=== PATIENT | male | born 1985 | race Caucasian/White ===

== ENCOUNTER 2019-11-17 00:06 | Observation (INO) | payer OTHER, SELFPAY ==
[2019-11-17] VITALS (13 sets, daily range): BP systolic 112–135; BP diastolic 51–85; PULSE 70–86; RESP 14–21; TEMP 36.7–37.1; O2SAT 96–100; BMI 38.7
--- NOTE | ~2019-11-17 | CT_ITS ---
EXAMINATION: CT abdomen pelvis w con DATE: 11/17/2019 01:20 INDICATION: Right lower quadrant abdominal pain. TECHNIQUE: Computed tomography (CT) of the abdomen and pelvis was performed . with 100 mL Omnipaque-3 50 intravenous contrast. Automated exposure control and iterative reconstruction technique were emplo yed. The dose-length product was 1433.98 mGy-cm. COMPARISON: None FINDINGS: Minimal dependent atelectasis in the bilateral lower lobes. Heart size is normal. No pericardial or p leural effusion. Diffuse hepatic steatosis with focal sparing along the gallbladder fossa. Gallbladde r, spleen, pancreas, bilateral adrenal glands and left kidney are normal. 8 mm relatively low-attenua tion lesion at the upper pole of the left kidney with slightly greater than simple fluid attenuation. The fluid-filled appendix is dilated to 10 mm distal to a calcified appendicolith at the base of the appendix. There is mucosal hyperemia and mild surrounding inflammatory stranding consistent with acu te appendicitis. Remainder of the bowels are normal with no obstruction. Trace amount of likely react miko free fluid in the pelvis. No abscess or free intraperitoneal gas. Bladder is normal. No pathologi elpidio enlarged abdominal or pelvic lymphadenopathy. Bones are unremarkable. IMPRESSION: 1. Radiographically uncomplicated acute appendicitis. According to documentation in report provided b [facility], Dr. Manjit Grullon discussed these findings with emergency room Dr. Cervantes at 1:51 AM . 2. Indeterminate 8 mm relatively low-attenuation lesion at the upper pole of the right kidney statist ically most likely to represent a proteinaceous/hemorrhagic cyst although solid neoplasm cannot be ab solutely excluded. Recommend follow-up pre and postcontrast CT or MRI 6-12 months. Reviewed, dictated and finalized at location A. IMPRESSION: 1. Radiographically uncomplicated acute appendicitis. According to documentatio n in report provided by [facility], Dr. Manjit Grullon discussed these finding s with emergency room Dr. Cervantes at 1:51 AM. 2. Indeterminate 8 mm relatively low-attenuation lesion at the upper pole of th e right kidney statistically most likely to represent a proteinaceous/hemorrhag ic cyst although solid neoplasm cannot be absolutely excluded. Recommend follow -up pre and postcontrast CT or MRI 6-12 months.
--- NOTE | 2019-11-17 00:17 | ED.ABDPAIN ---
HPI - Abdominal Pain General Chief Complaint: Abdominal Pain Stated Complaint: abd pain Time Seen by Provider: 11/17/19 00:15 Source: patient Mode of arrival: ambulatory Limitations: no limitations History of Present Illness HPI narrative: Patient is a 34-year-old male who presents to the emergency department for evaluation of abdominal pain. Patient reports lower abdominal pain, mostly in the right and left lower quadrant. No distention. Patient reports nausea, one episode of emesis at home which did not improve the patient's symptoms. No loose stools or diarrhea. Patient states he ate a hamburger at lunch, some macaroni for dinner, these are relatively normal meals for him. No one at home with similar symptoms. No history of abdominal surgeries. No chest pain, fever or chills. Related Data Home Medications Medication Instructions Recorded Confirmed No Home Medications 11/17/19 11/17/19 Allergies Allergy/AdvReac Type Severity Reaction Status Date / Time No Known Allergies Allergy Verified 11/17/19 00:30 Review of Systems Review of Systems: Narrative: CONSTITUTIONAL: Denies fever CARDIOVASCULAR: Denies chest pain RESPIRATORY: Denies cough or dyspnea. GASTROINTESTINAL: Reports abdominal pain, nausea and vomiting, denies diarrhea SKIN: Denies rash MUSCULOSKELETAL: Denies back pain NEUROLOGIC: Denies headache PMFSH Past Medical History Medical History (Updated 11/17/19 @ 01:50 by Jody Cervantes MD) No pertinent past medical history Surgical History Surgical History (Updated 11/17/19 @ 00:30 by Jody Cervantes MD) No pertinent past surgical history Social History Social History (Updated 11/17/19 @ 00:31 by Jody Cervantes MD) Smoking status: Never smoker Alcohol intake: never Substance use: never Living arrangements: with family Gender identity (if verbalized by the patient): Male Exam Narrative: Exam Narrative: GENERAL: Awake, alert, conversant HEAD: Normocephalic, atraumatic. EYES: PERRLA and EOMI. ENT: Nares clear, no rhinorrhea or epistaxis. Mucous membranes moist. NECK: Supple. CHEST: No respiratory distress, breathing even and non labored HEART: Regular rate, sinus rhythm ABDOMEN: Mild distention, tender in the right and left lower quadrant, greater tenderness in the right lower quadrant, no rebound or guarding, nonrigid EXTREMITIES: Normal range of motion. No edema. SKIN: Warm, dry, no rash. NEURO:No focal deficits. Alert and oriented x3 Course Vital Signs Vital signs: Vital Signs Temperature 37.1 C 11/17/19 00:15 Pulse Rate 86 11/17/19 00:15 Respiratory Rate 19 11/17/19 00:15 Blood Pressure 135/85 11/17/19 00:15 Pulse Oximetry 100 11/17/19 00:15 Temperature 37.1 C 11/17/19 00:15 Pulse Rate 86 11/17/19 00:15 Respiratory Rate 19 11/17/19 00:15 Blood Pressure 135/85 11/17/19 00:15 Pulse Oximetry 100 11/17/19 00:15 MDM - Abdominal Pain MDM Narrative Medical decision making narrative: Patient presented to the emergency department for evaluation of abdominal pain. At the time of assessment, patient has the greatest pain in his right lower quadrant, clinically this was somewhat concerning for appendicitis. Laboratory results notable for leukocytosis. CT scan confirms dilated appendix, no perforation, surrounding inflammatory changes. Patient was given dose of Zosyn, admitted to general surgery on n.p.o. status with IV maintenance fluids. Differential Diagnosis Differential diagnosis: Likely abdominal pain, acute appendicitis, calculus of kidney, constipation, diverticulitis, gastroenteritis, pancreatitis and small bowel obstruction Lab Data Attestation: I reviewed the patient's lab results. Result diagrams: 11/17/19 00:45 11/17/19 01:09 Labs: Lab Results 11/17/19 11/17/19 11/17/19 Range/Units 00:45 00:45 01:09 WBC 14.7 H (4.5-10.0) K/mm3 RBC 5.19 (4.6-6.20) M/mm3 Hgb 15.2
[2019-11-17] MEDS: ONDANSETRON INJ 4 MG/2 ML VIAL IV PUSH (00:39)
[2019-11-17] MEDS: MORPHINE SULFATE 4 MG/ML INJ IV PUSH ×2 (00:40→07:51)
[2019-11-17] MEDS: SODIUM CHLORIDE 0.9% IV 1,000 ML 999 ML IV CONT (00:45)
[2019-11-17 00:56] LABS: Basophils Absolute Auto 0.1 K/mm3 (0.0-0.1); Basophils Percent Auto 0.4 % (0.2-1.2); Eosinophils Absolute Auto 0.1 K/mm3 (0-0.3); Eosinophils Percent Auto 0.7 % (0-4.4); Hematocrit 45.2 % (42.0-52.0); Hemoglobin 15.2 g/dL (14.0-18.0); Immature Granulocyte Absolute 0.04 K/mm3 (0.00-0.031); Immature Granulocyte Percent A 0.3 % (0-0.5); Lymphocytes Absolute Auto 1.96 K/mm3 (0.9-3.2); Lymphocytes Percent Auto 13.3 % (18.3-44.2); Mean Corpuscular HGB Conc 33.6 g/dl (32-36); Mean Corpuscular Hemoglobin 29.3 pg (26-34); Mean Corpuscular Volume 87.1 fl (80-100); Mean Platelet Volume 9.9 fl (7.4-10.4); Monocytes Absolute Auto 1.1 K/mm3 (0.1-0.6); Monocytes Percent Auto 7.5 % (2.6-8.5); Neutrophils Absolute Auto 11.5 K/mm3 (1.3-6.7); Neutrophils Percent Auto 77.8 % (45.5-73.1); Platelet Count Result 274 k/mm3 (150-375); Red Blood Count 5.19 M/mm3 (4.6-6.20); Red Cell Distribution Width 12.8 % (11.5-14.5); White Blood Count 14.7 K/mm3 (4.5-10.0)
[2019-11-17 01:05] LABS: Alanine Aminotransferase 80 U/L (4-50); Albumin Level 4.6 g/dL (3.5-5.1); Alkaline Phosphatase 86 U/L (38-126); Aspartate Amino Transferase 49 U/L (17-59); Bilirubin,Total 0.4 mg/dL (0.2-1.3); Blood Urea Nitrogen 13 mg/dL (9-20); Calcium 9.7 mg/dL (8.4-10.2); Carbon Dioxide 26 mmol/L (22-30); Chloride 105 mmol/L (98-107); Estimated CRCL calculation 127 ml/min; Estimated Glomerular Filt Rate > 60; Glucose 112 mg/dL (75-110); Lipase 70 U/L (23-300); Potassium 4.5 mmol/L (3.4-5.0); Sodium 137 mmol/L (137-145)
[2019-11-17 01:09] LABS: Estimated CRCL calculation 105 ml/min; Estimated Glomerular Filt Rate > 60
[2019-11-17 02:05] LABS: Add Urine Microscopic? NO; Appearance Urine Clear (Clear); Bilirubin Urine Negative (Negative); Blood Urine Negative (Negative); Color Urine Yellow (Yellow); Glucose Urine UA Negative (Negative); Ketones Urine Negative (Negative); Leukocyte Esterase Ur Negative LEU/UL (Negative); Mucus Urine Rare /lpf; Nitrate Urine Negative (Negative); Protein Urine Negative (Negative); RBC Urine 0-2 /hpf (0-2); Urobilinogen Urine Negative mg/dL (<2.0); WBC Urine 0-3 /hpf
[2019-11-17 02:10] LABS: Specific Grav Ur 1.054 (1.001-1.035)
--- NOTE | 2019-11-17 03:09 | ADMGEN ---
This patient, Hermilo Teresa, was admitted to Medical Room 252-01. Patient/family oriented to hospital policies and general routines including ID bracelet, bed and alarms, visiting hours, pain management, procedures, bathroom and other care routines, personal items, smoking policy, room service/diet, and visiting hours. Valuables list has been completed. Information on how to activate the Rapid Response Team has been discussed. Patient/Family are encouraged to report perceived risks to care and to ask questions if they do not understand what they are told or what they should do.
[2019-11-17] MEDS: SODIUM CHLORIDE 0.9% IV 1,000 ML 125 ML IV CONT (03:29)
--- NOTE | 2019-11-17 08:15 | WPDANESEPPF ---
Anes - Initial Pre Proc Eval Procedure: Operation Date: 11/17/19 10:30 Proposed Procedures p Laparoscopic Appendectomy - Nain Quesada MD Date/Time: 11/17/19 08:15 Surgeon: Nain Quesada MD Pre Op Diagnosis: Acute appendicitis Patient Data Age: 34 Gender: M Height: 5 ft 8 in Weight: 115.5 kg Last Vital Signs Temp 98.1 F 11/17/19 06:00 Pulse 81 11/17/19 06:00 Resp 21 H 11/17/19 06:00 BP 112/51 L 11/17/19 06:00 Pulse Ox 100 11/17/19 06:00 Allergies Allergy/AdvReac Type Severity Reaction Status Date / Time No Known Allergies Allergy Verified 11/17/19 00:30 Home Medications Medication Instructions Recorded Confirmed Type No Home Medications 11/17/19 11/17/19 History Laboratory Tests 11/17/19 11/17/19 11/17/19 00:45 00:45 01:09 WBC 14.7 K/mm3 H K/mm3 (4.5-10.0) RBC 5.19 M/mm3 M/mm3 (4.6-6.20) Hgb 15.2 g/dL g/dL (14.0-18.0) Hct 45.2 % % (42.0-52.0) MCV 87.1 fl fl (80-100) MCH 29.3 pg pg (26-34) MCHC 33.6 g/dl g/dl (32-36) RDW 12.8 % % (11.5-14.5) Plt Count 274 k/mm3 k/mm3 (150-375) MPV 9.9 fl fl (7.4-10.4) Immature Gran % (Auto) 0.3 % % (0-0.5) Neut % (Auto) 77.8 % H % (45.5-73.1) Lymph % (Auto) 13.3 % L % (18.3-44.2) Kerr % (Auto) 7.5 % % (2.6-8.5) Eos % (Auto) 0.7 % % (0-4.4) Baso % (Auto) 0.4 % % (0.2-1.2) Lymph # (Auto) 1.96 K/mm3 K/mm3 (0.9-3.2) Kerr # (Auto) 1.1 K/mm3 H K/mm3 (0.1-0.6) Eos # (Auto) 0.1 K/mm3 K/mm3 (0-0.3) Baso # (Auto) 0.1 K/mm3 K/mm3 (0.0-0.1) Abs Immat Gran (auto) 0.04 K/mm3 H K/mm3 (0.00-0.031) Absolute Neuts (auto) 11.5 K/mm3 H K/mm3 (1.3-6.7) Absolute Nucleated RBC 0.0 K/mm3 K/mm3 (0.0-0.012) Nucleated RBC % 0.0 % % (0.0-0.2) Sodium 137 mmol/L mmol/L (137-145) Potassium 4.5 mmol/L mmol/L (3.4-5.0) Chloride 105 mmol/L mmol/L (98-107) Carbon Dioxide 26 mmol/L mmol/L (22-30) BUN 13 mg/dL mg/dL (9-20) Creatinine 0.90 mg/dL mg/dL 1.10 mg/dL mg/dL (0.7-1.3) (0.8-1.5) Estim Creat Clear Calc 127 ml/min ml/min 105 ml/min ml/min Estimated GFR > 60 > 60 (59 - ) (59 - ) Glucose 112 mg/dL H mg/dL (75-110) Calcium 9.7 mg/dL mg/dL (8.4-10.2) Total Bilirubin 0.4 mg/dL mg/dL (0.2-1.3) AST 49 U/L U/L (17-59) ALT 80 U/L H U/L (4-50) Alkaline Phosphatase 86 U/L U/L (38-126) Total Protein 8.0 g/dL g/dL (6.3-8.2) Albumin 4.6 g/dL g/dL (3.5-5.1) Lipase 70 U/L U/L (23-300) Urine Color Urine Appearance Urine pH Ur Specific [place] Urine Protein Urine Glucose (UA) Urine Ketones Ur Blood (Man) Urine Nitrate Urine Bilirubin Urine Urobilinogen Leukocyte Esterase Rfl Urine RBC Urine WBC Urine Mucus 11/17/19 01:42 WBC RBC Hgb Hct MCV MCH MCHC RDW Plt Count MPV Immature Gran % (Auto) Neut % (Auto) Lymph % (Auto) Kerr % (Auto) Eos % (Auto) Baso % (Auto) Lymph # (Auto) Kerr # (Auto) Eos # (Auto) Baso # (Auto) Abs Immat Gran (auto) Absolute Neuts (auto) Absolute Nucleated RBC Nucleated RBC % Sodium Potassium Chloride Carbon Dioxide BUN Creatinine Estim Creat Clear Calc Estimated GFR Glucose Calcium Total Bilirubin AST ALT Alkaline Phosphatase Total Protein A
--- NOTE | 2019-11-17 08:55 | PM.IMHP ---
H&P: HPI History of Present Illness Chief complaint: Acute appendicitis Narrative: Hermilo Teresa is a 34 year old male who presented to the emergency department with complaints of right lower quadrant abdominal pain. He reports having a sudden onset of generalized mild cramping abdominal pain around 4:30 p.m. last night. He decided to eat dinner and the cramping slowly became worse and started to localize to the right lower quadrant. He thought initially that this could gas pains, so he took Gas-X. This did not relieve his pain. He also reports feeling bloated and then vomited around 10:00 p.m.. He reportedly felt better for about 30 minutes, but the abdominal pain then returned. The pain continued to worsen and was unrelenting, therefore he presented to the emergency department for further evaluation. CT scan of the abdomen and pelvis showed acute uncomplicated appendicitis. Labs revealed leukocytosis with a white blood cell count 14,700. Our service was contacted for the acute appendicitis and the patient was admitted to our service with IV antibiotics, IV fluids, and made NPO. The patient is now being seen on medical floor. He reports he is still having right lower quadrant and right upper quadrant abdominal pain. Denies any nausea or vomiting since admission. He has been afebrile with vital signs stable. No other complaints at this time. Review of Systems Constitutional: Constitutional: Reports as per HPI, Denies chills, Denies excessive sweating, Denies fatigue, Denies fever(s), Denies headache(s) and Denies weakness Eyes: Eyes: Denies change in vision and Denies loss of vision ENT: Reports Normal hearing present, Denies dizziness and Denies headache(s) Cardiovascular: Cardiovascular: Denies chest pain, Denies syncope, Denies leg edema, Denies lightheadedness, Denies radiating jaw, neck or arm pain and Denies dyspnea Respiratory: Respiratory: Denies cough, Denies dyspnea and Denies wheezing Gastrointestinal: Gastrointestinal: Reports as per HPI, Reports abdominal pain (RLQ, RUQ), Reports bloating, Denies change in bowel habits, Denies coffee ground emesis, Denies constipation, Denies GI cramping, Denies diarrhea, Denies loose stools, Denies nausea, Denies odynophagia, Reports vomiting and Denies hematemesis Genitourinary: Genitourinary: Reports no additional male genitourinary complaints, Denies hematuria and Denies dysuria Musculoskeletal: Musculoskeletal: Denies deformity, Denies joint swelling, Denies radiating pain into limb and Denies tingling Integumentary/Breasts: Skin/Breast: Denies pruritus, Denies wounds and Denies jaundice Neurologic: Reports Normal hearing present, Denies confusion, Denies dizziness, Denies syncope, Denies headache(s), Denies loss of vision, Denies tingling, Denies tremor(s) and Denies weakness Psychiatric: Psychiatric: Denies anxiety, Denies confusion and Denies depression Endocrine: Endocrine: Denies cold intolerance, Denies excessive sweating, Denies fatigue and Denies heat intolerance Hematologic/Lymphatic: Hematologic/Lymphatic: Denies easy bleeding and Denies easy bruising PMFSH Past Medical History Medical History Obesity Surgical History Surgical History History of hernia repair Hernia repair as an infant, which sounds like an inguinal hernia repair. Family History Family History Grandparent Heart disease Kidney failure Other Carcinoma of colon Social History Social History Social History: The patient designates his , Mary Teresa (she goes by Janie ), as his decision maker. He wishes to be a full code. Smoking status: Never smoker Alcohol intake: current Drinks per week: 1 Substance use: never Living arrangements: with family Additional katarina
--- NOTE | 2019-11-17 09:03 | PC.NURSE ---
To OR per bed, IV saline locked
[2019-11-17] MEDS: LACTATED RINGERS 1,000 ML 30 ML IV CONT ×2 (09:26→12:10)
[2019-11-17] MEDS: BUPIVACAINE/EPINEPHRINE 0.5% 30 ML VIAL INFILTRATE (11:13)
[2019-11-17] MEDS: KETOROLAC 30 MG/ML VIAL (*BKC) IV PUSH (11:57)
--- NOTE | 2019-11-17 12:29 | PM.PROC ---
Procedure Note - Detailed Date of procedure: 11/17/19 Pre-op diagnosis: Acute appendicitis Post-op diagnosis: other (Acute appendicitis without peritonitis) Procedure performed: Laparoscopic Appendectomy Description of procedure: The patient was seen in his hospital room. The risks, benefits, complications, treatment options, and expected outcomes were discussed with the patient and/or family. The possibilities of reaction to medication, pulmonary aspiration, perforation of viscus, bleeding, recurrent infection, finding a normal appendix, the need for additional procedures, failure to diagnose a condition, and creating a complication requiring transfusion or operation were discussed. There was concurrence with the proposed plan and informed consent was obtained. The site of surgery was properly noted/marked. The patient was taken to Operating Room, and a time out was preformed which identified this as the proper patient, and the procedure verified as laparoscopic appendectomy, possible open. The patient was placed in the supine position and general anesthesia was induced, along with placement of orogastric tube, SCD hose, and a Hernandez catheter. The abdomen was prepped and draped in a sterile fashion. A 5 mm umbilical incision was made and the peritoneal cavity was accessed using the Veress needle technique. Once the abdomen was insufflated to 14 mmHg pressure a 5 mm XL trocar over the 0? 5 mm scope was carefully twisted into the abdomen via the umbilicus. The pneumoperitoneum was then established to steady pressure of 14 mm Hg. A 12 mm laparoscopic port was placed through a transverse suprapubic incision. An additional 5 mm cannula was then placed in the left lower quadrant of the abdomen at a level half way between the umbilicus and pubic symphysis under direct vision. A careful evaluation of the entire abdomen was carried out. The patient was placed in Trendelenburg and left lateral decubitus position. The small intestines were retracted in the cephalad and left lateral direction away from the pelvis and right lower quadrant. The patient was found to have an enlarged and inflamed appendix that was extending [into the right side of the pelvis. There was no evidence of perforation. The appendix was carefully dissected. Once it was free a 45 mm ethicon endogastroentestinal stapler with a vascular load was placed across the mesoappendix. This was fired and hemostasis was checked along the staple line and appeared to be adequate. For this patient, this divided the entire mesoappendix and we were able to proceed immediately to stapling off the appendix at it's junction with the cecum. The appendix was then divided at its base using the same 45 mm stapler with a 3.5 mm bowel wall load. Minimal appendiceal stump was left in place. There was no evidence of bleeding, leakage, or complication after division of the appendix at its junction with the cecum.. The appendix was then placed in an endobag which had been brought through the 12 mm suprapubic port site. The appendix and the bag were then extracted through this larger port site in the suprapubic position. The suprapubic port site was closed using a #1 Polysorb suture passed with a Giorgio-Fairchild cone and needle suture passer. Also the suprapubic incision was accessible enough that I also was able to use a standard needle castro externally through the an incision at the level of the fascia. The trocar site skin wounds were closed using 4-0 undyed Monocryl and surgical glue. Instrument, sponge, and needle counts were correct at the conclusion of the case. Anesthesia: GETA Surgeon: Nain Quesada MD Bacteriology Teacher: ANGUS Dumont, OR 1st assist Estimated blood loss (mL): 25 Drains: No Pathology: yes (The appendix.) Complications: No immediate complications Condition: stable Disposition: PACU Findings: The swollen red appendix with some reactive fluid around it but no signs of perforation.
--- NOTE | 2019-11-17 13:08 | PC.NURSE ---
Returned from OR per bed with IV saline locked. Incisions assessed upon arrival, open to air, skin glue intact and well approximated.
--- NOTE | 2019-11-17 17:24 | PM.DS ---
DS: Admitting Diagnosis Admitting Diagnosis Admitting Diagnosis: Acute appendicitis with localized peritonitis, without perforation or gangrene DS: Discharge Diagnosis Discharge Diagnosis (1) Acute appendicitis: Qualifiers: Acute appendicitis type: with localized peritonitis Appendicitis abscess presence: without abscess Appendicitis gangrene presence: without gangrene Appendicitis perforation presence: without perforation Qualified Code(s): K35.30 - Acute appendicitis with localized peritonitis, without perforation or gangrene Code(s): K35.80 - Unspecified acute appendicitis Status: Acute (2) Obesity: Code(s): E66.9 - Obesity, unspecified Status: Acute Assessment and Plan: Encouraged patient to lose weight down to his ideal body weight. DS: Summary Hospital Course Reason for hospitalization: Acute appendicitis Hospital Course: patient uneventful hospital course. He was made in the middle the night. Her able to schedule his surgery in the morning he had acute appendicitis but without perforation. He received antibiotics up until and through the time of surgery. He does not need them now. Postoperatively was doing well in the help in his hospital room advancing his diet slowly tolerating liquids without nausea. It was felt that he was independent to go home. We will send some pain pills home with them but he was not taking any [place] here. Status at Discharge Cognitive/behavioral status at discharge: Back to baseline. Functional status at discharge: independent ambulation Time Spent with Patient Time attestation: Total time spent providing and/or coordinating discharge services: Time spent: Less than 30 minutes Exam Const: General: cooperative, no acute distress, alert and awake Orientation/consciousness: patient oriented x3 HENMT: Mouth: Yes moist mucous membranes Neck: Neck: normal visual inspection Chest: Chest palpation & inspection: normal inspection of the chest Resp: Effort & Inspection: normal respiratory effort Auscultation: clear to auscultation bilaterally Cardio: Jugular venous distension: no JVD Rate: regular rate Rhythm: regular rhythm GI: Rectal Exam: deferred Other: incisions at umbilicus and left lower quadrant clean and dry with surgical glue in place. Abdomen soft rounded without signs of ileus. Neuro: General: patient oriented x3 and moves all extremities Speech: normal speech Extrem: General: normal exam except as noted Psych: Mental Status: mental status grossly normal Speech and movement: Normal speech and movement present Affect: normal affect Thought content: Yes Normal thought content present DS: Data Data Completed and Pending Pending studies at discharge: Pending at discharge 11/17/19 11:21 Surgical [PTH] Routine Labs on day of discharge: Labs from last 24 hours 11/17/19 11/17/19 11/17/19 01:42 01:09 00:45 WBC RBC Hgb Hct MCV MCH MCHC RDW Plt Count MPV Immature Gran % (Auto) Neut % (Auto) Lymph % (Auto) [place] % (Auto) Eos % (Auto) Baso % (Auto) Lymph # (Auto) [place] # (Auto) Eos # (Auto) Baso # (Auto) Abs Immat Gran (auto) Absolute Neuts (auto) Absolute Nucleated RBC Nucleated RBC % Sodium 137 Potassium 4.5 Chloride 105 Carbon Dioxide 26 BUN 13 Creatinine 1.10 0.90 Estim Creat Clear Calc 105 127 Estimated GFR > 60 > 60 Glucose 112 H Calcium 9.7 Total Bilirubin 0.4 AST 49 ALT 80 H Alkaline Phosphatase 86 Total Protein 8.0 Albumin 4.6 Lipase 70 Urine Color Yellow Urine Appearance Clear Urine pH 5.0 Ur Specific [place] 1.054 H Urine Protein Negative Urine Glucose (UA) Negative Urine Ketones Negative Ur Blood (Man) Negative Urine Nitrate Negative Urine Bilirubin Negative Urine Urobilinogen Negative Leukocyte Esterase Rfl Negative
--- NOTE | 2019-11-18 09:55 | WPDANESPN ---
Anes - Prog Note Post-Op Date/Time: 11/18/19 09:55 Cardiovascular status: normal Respiratory status: normal Airway patency: baseline Mental status: baseline Post-Op hydration status: normal Vital Signs: Last Vital Signs Temp 98.1 F 11/17/19 15:00 Pulse 70 11/17/19 15:00 Resp 18 11/17/19 15:00 BP 115/71 11/17/19 15:00 Pulse Ox 98 11/17/19 15:00 I/O: Intake & Output 11/17/19 11/18/19 11/18/19 23:59 07:59 15:59 Intake Total 470 Output Total 50 Balance 420 Laboratory Tests 11/17/19 00:45 11/17/19 01:09 Post-procedural complaints: none Patient Feedback: Patient satisfied with anesthetic care.
== END 2019-11-17 17:49 | disposition home or self-care (01) ==
LOC: ANHED 01:57 → ANH2MED 03:47
PROVIDERS: Admitting Provider Surgery; Emergency Provider Emergency Medicine; Visit Provider Surgery
PROC: 0DTJ4ZZ Resection of Appendix, Percutaneous Endoscopic Approach (ICD-10-PCS; CPT 44970; principal; 2019-11-17 10:30)
DX: K35.32 Acute appendicitis with perforation, localized peritonitis, and gangrene, without abscess (principal); K38.1 Appendicular concretions; E66.9 Obesity, unspecified; Z68.38 Body mass index [BMI] 38.0-38.9, adult
CPT/HCPCS: 44970; 36415; 74177; 80053; 81003; 83690; 85025; 88304; 96361; 96365; 96367; 96375; 96376; 99285; G0378; J0131; J0330; J1100; J1170; J1885; J2250; J2270; J2405; J2543; J2704; J2710; J3010; J7030; J7120; Q9967

== ENCOUNTER 2023-03-29 16:38 | Emergency (ER) | payer OTHER, SELFPAY ==
--- NOTE | ~2023-03-29 | XR_ITS ---
EXAM: XR ankle LT min 3V DATE: 03/29/2023 16:53 HISTORY: rolled ankle this morning/lateral pain . COMPARISON: None available. FINDINGS: Normal mineralization. No fracture or dislocation. No lytic or blastic lesion. Joint space s are maintained. No erosion or periosteal change. Lateral soft tissue swelling. IMPRESSION: No acute osseous finding in the left ankle. Reviewed, dictated and finalized at location K.
[2023-03-29 16:45] VITALS: BP 119/76; PULSE 89; RESP 18; TEMP 37.2; O2SAT 99
--- NOTE | 2023-03-29 16:47 | ED.LOWEXIN ---
HPI - Extremity Injury (Lower) General Chief Complaint: Extremity Injury, Lower Stated Complaint: Lt Ankle Pain and Swelling Source: patient Mode of arrival: ambulatory Limitations: no limitations History of Present Illness HPI Narrative: 37 y/o male presented for c/o left ankle pain and swelling after rolling the ankle this morning. States the foot slipped at the edge of the driveway between the yard and caused him to fall. Has not taken anything for pain. Denies numbness, tingling or weakness. Patient has been ambulating without difficulty. Related Data Home Medications Medication Instructions Recorded Confirmed No Home Medications 11/17/19 03/29/23 Allergies Allergy/AdvReac Type Severity Reaction Status Date / Time No Known Allergies Allergy Verified 03/29/23 16:41 Review of Systems Review of Systems: CONSTITUTIONAL: Denies body aches, fever, chills EYES: Denies visual changes ENT: Denies rhinorrhea, congestion CARDIOVASCULAR: Denies chest pain, palpitations, or edema. RESPIRATORY: Denies cough or dyspnea. GASTROINTESTINAL: Denies abdominal pain, nausea, vomiting, or diarrhea. SKIN: Denies rash, itching, or wounds. MUSCULOSKELETAL: Reports left ankle pain Denies back pain, or myalgia. NEUROLOGIC: Denies headache, numbness, tingling, or weakness. All systems reviewed & are unremarkable except as noted in HPI and below PMFSH Past Medical History Medical History Obesity Surgical History Surgical History History of hernia repair Hernia repair as an infant, which sounds like an inguinal hernia repair. S/P laparoscopic appendectomy Family History Family History Grandparent Heart disease Kidney failure Other Carcinoma of colon Social History Social History Social History: The patient designates his , Mary Teresa (she goes by Janie ), as his decision maker. He wishes to be a full code. Smoking status: Never smoker Alcohol intake: current Drinks per week: 1 Substance use: never Living arrangements: with family Additional living arrangements comments: His and his 2 year old. 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 Gender identity (if verbalized by the patient): Male Sexual Orientation (if Verbalized by the Patient): Straight or Heterosexual Spiritual care concerns: No Comments At time of signature, I have reviewed and agree with nursing past medical, surgical, social and family history unless otherwise noted. Please see nursing chart for further information. There is no relevant family history pertinent to the presenting complaint Exam Narrative: GENERAL: Well-appearing, and in no acute distress. HEAD: Normocephalic, atraumatic. EYES: PERRLA, conjunctivae clear NECK: Supple. CHEST: Speaks in full sentences. No respiratory distress. HEART: Regular rate and rhythm. Normal and equal peripheral pulses. EXTREMITIES: Left foot has normal strength and sensation, normal range of motion at ankle with minimal pain with movement. Mild lateral ankle soft tissue swelling. No ecchymosis, No point tenderness. No open wounds, or obvious deformity; alignment normal, pulse palpable and equal bilaterally, skin warm, dry, pink. Capillary refill less than 3 seconds. SKIN: Warm, dry, no rash. NEURO: Alert and oriented x3. PSYCH: Normal mood and affect Course Course Emergency Course: Patient is aware of diagnosis, understands and agrees to treatment plan. Anticipatory guidance given. Patient agrees to follow-up as directed and is aware of reasons to seek care at the emergency department. Portions of this record may have been created with voice recognition software Level of Care: Festus Jeong
== END 2023-03-29 17:06 | disposition home or self-care (01) ==
PROVIDERS: Emergency Provider Nurse Practitioner Family; PCP Family Medicine
DX: S93.402A Sprain of unspecified ligament of left ankle, initial encounter (principal); X50.9XXA Other and unspecified overexertion or strenuous movements or postures, initial encounter; E66.9 Obesity, unspecified; Z68.35 Body mass index [BMI] 35.0-35.9, adult
CPT/HCPCS: 73610; 99213; G0463

== ENCOUNTER 2023-04-12 08:23 | Emergency (ER) | payer OTHER, SELFPAY ==
--- NOTE | ~2023-04-12 | XR_ITS ---
EXAMINATION: XR chest 2V DATE: 04/12/2023 08:46 INDICATION: Cough TECHNIQUE: PA and lateral views of the chest are obtained. COMPARISON: None available FINDINGS: The lungs are free of acute opacities. No pleural effusion or pneumothorax. The cardiomedia stinal silhouette is normal. The visualized bones and soft tissues are unremarkable. IMPRESSION: 1. No acute cardiopulmonary abnormality. Reviewed, dictated and finalized at location F.
--- NOTE | 2023-04-12 08:25 | ED.URI ---
HPI - URI/Sore Throat General Chief Complaint: Upper Respiratory Infection Stated Complaint: Cough Time Seen by Provider: 04/12/23 08:25 Source: patient Mode of arrival: ambulatory Limitations: no limitations History of Present Illness HPI Narrative: Is a 37-year-old male who presents with 1 month of cough, worsening last week. Patient did a telehealth visit yesterday and was prescribed prednisone, benzonatate and an inhaler. Was told to come be evaluated for pneumonia. Patient has taken 1 dose of all medication and does state he notices slight improvement already. States he has coughing fits in the morning and is able to cough up phlegm. Denies any fever, chills, nausea, vomiting, diarrhea, congestion, ear pain, sore throat. Related Data Home Medications Medication Instructions Recorded Confirmed albuterol sulfate 90 mcg/actuation 2 inh inhalation Q6H 04/12/23 04/12/23 aerosol inhaler benzonatate 100 mg capsule 100 mg PO DAILY 04/12/23 04/12/23 prednisone 20 mg tablet 40 mg PO DAILY 04/12/23 04/12/23 Allergies Allergy/AdvReac Type Severity Reaction Status Date / Time No Known Allergies Allergy Verified 04/12/23 08:54 Review of Systems Review of Systems: All systems reviewed & are unremarkable except as noted in HPI and below Constitutional: Constitutional: Denies body ache(s), Denies chills, Denies fatigue, Denies fever(s), Denies headache(s), Denies malaise and Denies weakness Eyes: Eyes: Denies blurry vision, Denies itchy eyes and Denies loss of vision ENT: Denies otalgia, Denies headache(s), Denies nasal congestion, Denies sinus pain and Denies sore throat Cardiovascular: Cardiovascular: Denies chest pain, Denies irregular heart rhythm and Denies dyspnea Respiratory: Respiratory: Reports cough and Denies dyspnea Gastrointestinal: Gastrointestinal: Denies abdominal pain, Denies diarrhea, Denies nausea and Denies vomiting Musculoskeletal: Musculoskeletal: Denies back pain, Denies myalgias and Denies arthralgias Integumentary/Breasts: Skin/Breast: Denies pruritus and Denies rash Neurologic: Denies headache(s), Denies loss of vision and Denies weakness Psychiatric: Psychiatric: Reports no additional psychiatric complaints Endocrine: Endocrine: Denies fatigue Allergic/Immunologic: Allergic/Immunologic: Denies itchy eyes PMFSH Past Medical History Medical History (Updated 04/12/23 @ 09:12 by Theresa Jett APRN) Obesity Surgical History Surgical History History of hernia repair Hernia repair as an infant, which sounds like an inguinal hernia repair. S/P laparoscopic appendectomy Family History Family History Grandparent Heart disease Kidney failure Other Carcinoma of colon Social History Social History Social History: The patient designates his , Mary Teresa (she goes by Janie ), as his decision maker. He wishes to be a full code. Smoking status: Never smoker Alcohol intake: current Drinks per week: 1 Substance use: never Living arrangements: with family Additional living arrangements comments: His and his 2 year old. 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 There is no relevant family history pertinent to the presenting complaint. Exam Const: General: cooperative, healthy appearing, comfortable, no acute distress and well nourished Nutritional Appearance: well nourished Orientation/consciousness: patient oriented x3 Limitations: no limitations HENMT: Head: normal to
[2023-04-12 08:33] VITALS: BP 139/84; PULSE 98; RESP 16; TEMP 36.6; O2SAT 98
[2023-04-12 08:51] VITALS: RESP 20
== END 2023-04-12 09:20 | disposition home or self-care (01) ==
PROVIDERS: Emergency Provider Nurse Practitioner Family; PCP Family Medicine
DX: J06.9 Acute upper respiratory infection, unspecified (principal); E66.9 Obesity, unspecified; Z68.35 Body mass index [BMI] 35.0-35.9, adult
CPT/HCPCS: 71046; 99213; G0463